=== PATIENT | male | born 1995 | race Caucasian/White ===

== ENCOUNTER 2018-05-11 16:12 | Emergency (ER) | payer BC ==
[~2018-05-11] VITALS: Ht 182.9 cm; Wt 88.0 kg
[2018-05-11 16:17] VITALS: BP 111/64
[2018-05-11] MEDS ORDERED: MOTRIN600 MG PO (17:16)
== END 2018-05-11 17:52 | disposition home or self-care (01) ==
LOC: EME 16:12
DX: S93.402A Sprain of unspecified ligament of left ankle, initial encounter (principal); X50.1XXA Overexertion from prolonged static or awkward postures, initial encounter; Y93.H9 Activity, other involving exterior property and land maintenance, building and construction
CPT/HCPCS: 73610; 99281; 99284